=== PATIENT | male | born 1995 | race American Indian/Alaskan Native ===

== ENCOUNTER 2020-07-20 09:50 | Emergency (ER) | payer SELFPAY ==
[2020-07-20 10:30] VITALS: BP 139/71
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
== END 2020-07-20 12:30 | disposition home or self-care (01) ==
LOC: ED 09:50
DX: M79.18 Myalgia, other site (principal); M54.5 Low back pain; V89.2XXA Person injured in unspecified motor-vehicle accident, traffic, initial encounter; Y93.89 Activity, other specified; Y92.488 Other paved roadways as the place of occurrence of the external cause; Y99.8 Other external cause status
CPT/HCPCS: 99282

== ENCOUNTER 2020-10-20 12:47 | Emergency (ER) | payer OTHER | END 2020-10-20 22:18 | LOC: ED 12:47 | DX: Z00.00 Encounter for general adult medical examination without abnormal findings (principal); Z53.21 Procedure and treatment not carried out due to patient leaving prior to being seen by health care provider ==